=== PATIENT | male | born 1955 | race Caucasian/White ===

== ENCOUNTER 2017-11-19 08:56 | Inpatient (IN) | payer BC ==
[2017-11-19] MEDS: SOD CHLORIDE 0.9% 1,000 ML IV (10:50)
[2017-11-19 10:54] LABS: ADD MAN DIFF? NO
[2017-11-19 10:56] LABS: BASOPHILS % 0.4 % (0.0-2.0); EOSINOPHILS # 0.1 10^3/ul (0.0-0.5); EOSINOPHILS % 1.5 % (0.0-7.0); HEMATOCRIT 27.3 % (42.0-52.0); HEMOGLOBIN 9.9 g/dl (14.0-18.0); LYMPHOCYTES # 0.6 10^3/ul (0.8-2.9); LYMPHOCYTES % 13.5 % (15.0-51.0); MEAN CORPUSCULAR HEMOGLOBIN 33.7 pg (29.0-33.0); MEAN CORPUSCULAR HGB CONC 36.3 g/dl (32.0-37.0); MEAN CORPUSCULAR VOLUME 92.9 fl (82.0-101.0); MEAN PLATELET VOLUME 10.3 fl (7.4-10.4); MONOCYTE # 0.3 10^3/ul (0.3-0.9); NEUTROPHIL # 3.5 10^3/ul (1.6-7.5); NEUTROPHILS % 77.4 % (39.0-77.0); PLATELET COUNT 239 10^3/UL (140-415); RED BLOOD COUNT 2.94 10^6/ul (4.70-6.10); RED CELL DISTRIBUTION WIDTH 11.8 % (11.5-14.5)
[2017-11-19 10:56] LABS: WHITE BLOOD COUNT 4.6 10^3/ul (4.8-10.8)
[2017-11-19 11:48] LABS: ADD UMIC YES; UR ASCORBIC ACID NEGATIVE (NEGATIVE); UR BILIRUBIN (Dip) NEGATIVE (NEGATIVE); UR BLOOD (Dip) 1+ mg/dL (NEGATIVE); UR CLARITY CLEAR (CLEAR); UR COLOR COLORLESS (YELLOW); UR GLUCOSE (Dip) NEGATIVE (NEGATIVE); UR KETONES (Dip) NEGATIVE (NEGATIVE); UR LEUKOCYTE ESTERASE (Dip) 1+ Leu/ul (NEGATIVE); UR NITRITE (Dip) NEGATIVE (NEGATIVE); UR RBC 0 /HPF (0-5); UR SPECIFIC GRAVITY (Dip) 1.003 (1.003-1.030); UR TOTAL PROTEIN (Dip) NEGATIVE (NEGATIVE); UR UROBILINOGEN (Dip) NEGATIVE (NEGATIVE); UR WBC 2 /HPF (0-5)
[2017-11-19 12:00] LABS: ALANINE AMINOTRANSFERASE 19 IU/L (13-69); ALBUMIN 4.8 g/dl (3.3-4.9); ALBUMIN/GLOBULIN RATIO 1.41; ALKALINE PHOSPHATASE 76 IU/L (42-121); ANION GAP 20 (8-16); ASPARTATE AMINO TRANSFERASE 13 IU/L (15-46); BILIRUBIN,INDIRECT 0.1 mg/dl (0-1.1); BILIRUBIN,TOTAL 0.1 mg/dl (0.2-1.3); BLOOD UREA NITROGEN 53 mg/dl (7-20); CALCIUM 9.6 mg/dl (8.4-10.2); CARBON DIOXIDE 20 mmol/L (21-31); CHLORIDE 98 mmol/L (97-110); GLUCOSE 98 mg/dl (70-220); LIPASE 81 U/L (23-300); POTASSIUM 4.8 mmol/L (3.5-5.1); SODIUM 133 mmol/L (135-144); TOTAL PROTEIN 8.2 g/dl (6.1-8.1)
[2017-11-19 12:12] LABS: TROPONIN-I < 0.012 ng/ml (0.00-0.12)
[2017-11-19] MEDS ORDERED: ACETAMINOPHEN 325 MG TAB PO (13:00)
[2017-11-19] MEDS ORDERED: ONDANSETRON 4 MG INJ IV (13:00)
[2017-11-19 16:43] LABS: ADD UMIC YES; UR ASCORBIC ACID NEGATIVE (NEGATIVE); UR BACTERIA FEW /HPF (NONE SEEN); UR BILIRUBIN (Dip) NEGATIVE (NEGATIVE); UR BLOOD (Dip) 1+ mg/dL (NEGATIVE); UR CLARITY CLEAR (CLEAR); UR COLOR COLORLESS (YELLOW); UR GLUCOSE (Dip) NEGATIVE (NEGATIVE); UR KETONES (Dip) NEGATIVE (NEGATIVE); UR LEUKOCYTE ESTERASE (Dip) TRACE Leu/ul (NEGATIVE); UR NITRITE (Dip) NEGATIVE (NEGATIVE); UR RBC 0 /HPF (0-5); UR SPECIFIC GRAVITY (Dip) 1.002 (1.003-1.030); UR TOTAL PROTEIN (Dip) NEGATIVE (NEGATIVE); UR UROBILINOGEN (Dip) NEGATIVE (NEGATIVE); UR WBC 2 /HPF (0-5)
[2017-11-19 18:23] LABS: ANION GAP 17 (8-16); BLOOD UREA NITROGEN 51 mg/dl (7-20); CALCIUM 9.8 mg/dl (8.4-10.2); CARBON DIOXIDE 24 mmol/L (21-31); CHLORIDE 100 mmol/L (97-110); CREATININE 4.26 mg/dl (0.61-1.24); GLUCOSE 98 mg/dl (70-220); POTASSIUM 4.5 mmol/L (3.5-5.1); SODIUM 136 mmol/L (135-144)
[2017-11-19] MEDS ORDERED: NACL 0.9% 3 ML SYG IV (18:30)
[2017-11-19] MEDS: TAMSULOSIN (SR) 0.4 MG CAP PO (21:28)
[2017-11-19] MEDS: HEPARIN 5,000 UNIT/0.5 ML VIAL SC (21:30)
[2017-11-19] MEDS: ZOLPIDEM 5 MG TAB PO (22:57)
[2017-11-19 23:07] LABS: PROSTATE SPECIFIC ANTIGEN 2.7 ng/ml (0.0-4.0)
[2017-11-20] MEDS: HEPARIN 5,000 UNIT/0.5 ML VIAL SC (05:59)
[2017-11-20 06:38] LABS: ADD MAN DIFF? NO
[2017-11-20 06:47] LABS: BASOPHILS % 0.4 % (0.0-2.0); EOSINOPHILS # 0.1 10^3/ul (0.0-0.5); HEMATOCRIT 31.5 % (42.0-52.0); HEMOGLOBIN 11.1 g/dl (14.0-18.0); LYMPHOCYTES # 0.6 10^3/ul (0.8-2.9); LYMPHOCYTES % 11.9 % (15.0-51.0); MEAN CORPUSCULAR HEMOGLOBIN 33.1 pg (29.0-33.0); MEAN CORPUSCULAR HGB CONC 35.2 g/dl (32.0-37.0); MEAN PLATELET VOLUME 11.1 fl (7.4-10.4); MONOCYTE # 0.4 10^3/ul (0.3-0.9); MONOCYTES % 6.9 % (0.0-11.0); NEUTROPHIL # 4.1 10^3/ul (1.6-7.5); NEUTROPHILS % 79.4 % (39.0-77.0); PLATELET COUNT 274 10^3/UL (140-415); RED BLOOD COUNT 3.35 10^6/ul (4.70-6.10)
[2017-11-20 06:47] LABS: WHITE BLOOD COUNT 5.2 10^3/ul (4.8-10.8)
[2017-11-20 07:07] LABS: IRON 53 ug/dl (35-150)
[2017-11-20 07:12] LABS: ANION GAP 18 (8-16); BLOOD UREA NITROGEN 49 mg/dl (7-20); CALCIUM 9.6 mg/dl (8.4-10.2); CARBON DIOXIDE 22 mmol/L (21-31); CHLORIDE 103 mmol/L (97-110); CREATININE 3.94 mg/dl (0.61-1.24); GLUCOSE 114 mg/dl (70-220); SODIUM 138 mmol/L (135-144)
[2017-11-20 07:16] LABS: % IRON SATURATION 22 % SAT (22-52); TOTAL IRON BINDING CAPACITY 239 ug/dl (241-421)
[2017-11-20 07:21] LABS: POTASSIUM 5.2 mmol/L (3.5-5.1)
[2017-11-20 07:37] LABS: ALANINE AMINOTRANSFERASE 21 IU/L (13-69); ALBUMIN 4.4 g/dl (3.3-4.9); ALBUMIN/GLOBULIN RATIO 1.46; ALKALINE PHOSPHATASE 64 IU/L (42-121); ANION GAP 18 (8-16); ASPARTATE AMINO TRANSFERASE 11 IU/L (15-46); BILIRUBIN,INDIRECT 0.1 mg/dl (0-1.1); BILIRUBIN,TOTAL 0.1 mg/dl (0.2-1.3); BLOOD UREA NITROGEN 49 mg/dl (7-20); CALCIUM 9.6 mg/dl (8.4-10.2); CARBON DIOXIDE 21 mmol/L (21-31); CHLORIDE 103 mmol/L (97-110); CREATININE 4.04 mg/dl (0.61-1.24); GLUCOSE 119 mg/dl (70-220); POTASSIUM 4.8 mmol/L (3.5-5.1); SODIUM 137 mmol/L (135-144); TOTAL PROTEIN 7.4 g/dl (6.1-8.1)
[2017-11-20 07:56] LABS: HIV 1&2 ANTIBODY NEGATIVE (NEGATIVE)
[2017-11-20] MEDS: TAMSULOSIN (SR) 0.4 MG CAP PO (20:52)
[2017-11-20] MEDS: ZOLPIDEM 5 MG TAB PO (20:56)
[2017-11-21 06:17] LABS: ADD MAN DIFF? NO
[2017-11-21 06:23] LABS: BASOPHILS % 0.5 % (0.0-2.0); EOSINOPHILS # 0.4 10^3/ul (0.0-0.5); EOSINOPHILS % 6.3 % (0.0-7.0); HEMATOCRIT 29.8 % (42.0-52.0); HEMOGLOBIN 10.6 g/dl (14.0-18.0); LYMPHOCYTES % 17.5 % (15.0-51.0); MEAN CORPUSCULAR HEMOGLOBIN 33.2 pg (29.0-33.0); MEAN CORPUSCULAR HGB CONC 35.6 g/dl (32.0-37.0); MEAN CORPUSCULAR VOLUME 93.4 fl (82.0-101.0); MEAN PLATELET VOLUME 10.9 fl (7.4-10.4); MONOCYTE # 0.5 10^3/ul (0.3-0.9); MONOCYTES % 8.5 % (0.0-11.0); NEUTROPHIL # 3.9 10^3/ul (1.6-7.5); NEUTROPHILS % 66.7 % (39.0-77.0); PLATELET COUNT 262 10^3/UL (140-415); RED BLOOD COUNT 3.19 10^6/ul (4.70-6.10); RED CELL DISTRIBUTION WIDTH 11.9 % (11.5-14.5)
[2017-11-21 06:23] LABS: WHITE BLOOD COUNT 5.9 10^3/ul (4.8-10.8)
[2017-11-21 06:53] LABS: ANION GAP 18 (8-16); BLOOD UREA NITROGEN 49 mg/dl (7-20); CALCIUM 9.5 mg/dl (8.4-10.2); CARBON DIOXIDE 22 mmol/L (21-31); CHLORIDE 101 mmol/L (97-110); CREATININE 4.04 mg/dl (0.61-1.24); GLUCOSE 109 mg/dl (70-220); POTASSIUM 4.9 mmol/L (3.5-5.1); SODIUM 136 mmol/L (135-144)
[2017-11-21] MEDS: HYDROCODONE/APAP (5/325) TAB PO (12:51)
[2017-11-21] MEDS ORDERED: DOCUSATE SODIUM 100 MG CAP PO (15:00)
[2017-11-21] MEDS: TAMSULOSIN (SR) 0.4 MG CAP PO (21:01)
[2017-11-21] MEDS: ZOLPIDEM 5 MG TAB PO (22:14)
[2017-11-22 05:40] LABS: ANION GAP 16 (8-16); BLOOD UREA NITROGEN 41 mg/dl (7-20); CALCIUM 9.9 mg/dl (8.4-10.2); CARBON DIOXIDE 24 mmol/L (21-31); CHLORIDE 99 mmol/L (97-110); CREATININE 3.76 mg/dl (0.61-1.24); GLUCOSE 118 mg/dl (70-220); POTASSIUM 4.7 mmol/L (3.5-5.1); SODIUM 134 mmol/L (135-144)
[2017-11-22] MEDS: LORAZEPAM 0.5 MG TAB PO ×2 (06:58→20:28)
[2017-11-22] MEDS: HYDROCODONE/APAP (5/325) TAB PO ×2 (09:13→17:40)
[2017-11-22] MEDS: TAMSULOSIN (SR) 0.4 MG CAP PO (20:24)
[2017-11-22] MEDS: ZOLPIDEM 5 MG TAB PO (21:50)
[2017-11-23] MEDS: LORAZEPAM 0.5 MG TAB PO ×2 (05:48→10:07)
== END 2017-11-23 19:05 | disposition home health service (06) | DRG 699 ==
LOC: E/R 08:56 → PP2 12:51
DX: N31.2 Flaccid neuropathic bladder, not elsewhere classified (principal); R33.0 Drug induced retention of urine; N17.9 Acute kidney failure, unspecified; E87.1 Hypo-osmolality and hyponatremia; N13.30 Unspecified hydronephrosis; N13.9 Obstructive and reflux uropathy, unspecified; N40.1 Benign prostatic hyperplasia with lower urinary tract symptoms; E86.1 Hypovolemia; F32.9 Major depressive disorder, single episode, unspecified; R35.1 Nocturia; T50.995A Adverse effect of other drugs, medicaments and biological substances, initial encounter
CPT/HCPCS: 36415; 76775; 80048; 80053; 81001; 82728; 83540; 83690; 84153; 84154; 84484; 85025; 86703; 93005; 99285-25

== ENCOUNTER 2019-02-10 08:06 | Inpatient (IN) | payer BC ==
[2019-02-10 09:11] LABS: ADD MAN DIFF? NO
[2019-02-10 09:12] LABS: BASOPHILS % 0.4 % (0.0-2.0); EOSINOPHILS # 0.1 10^3/ul (0.0-0.5); EOSINOPHILS % 0.7 % (0.0-7.0); HEMATOCRIT 27.5 % (42.0-52.0); HEMOGLOBIN 9.8 g/dl (14.0-18.0); LYMPHOCYTES # 0.8 10^3/ul (0.8-2.9); LYMPHOCYTES % 12.1 % (15.0-51.0); MEAN CORPUSCULAR HEMOGLOBIN 31.5 pg (29.0-33.0); MEAN CORPUSCULAR HGB CONC 35.6 g/dl (32.0-37.0); MEAN CORPUSCULAR VOLUME 88.4 fl (82.0-101.0); MEAN PLATELET VOLUME 8.9 fl (7.4-10.4); MONOCYTE # 0.5 10^3/ul (0.3-0.9); MONOCYTES % 7.1 % (0.0-11.0); NEUTROPHIL # 5.3 10^3/ul (1.6-7.5); NEUTROPHILS % 76.8 % (39.0-77.0); PLATELET COUNT 436 10^3/UL (140-415); RED BLOOD COUNT 3.11 10^6/ul (4.70-6.10); RED CELL DISTRIBUTION WIDTH 13.3 % (11.5-14.5)
[2019-02-10 09:30] LABS: ANION GAP 15 (5-13); BLOOD UREA NITROGEN 39 mg/dl (7-20); CALCIUM 9.5 mg/dl (8.4-10.2); CARBON DIOXIDE 20 mmol/L (21-31); CHLORIDE 86 mmol/L (97-110); CREATININE 4.38 mg/dl (0.61-1.24); Estimated GFR 14 mL/min (>60); GLUCOSE 117 mg/dl (70-220); POTASSIUM 4.5 mmol/L (3.5-5.1); SODIUM 121 mmol/L (135-144)
[2019-02-10 09:31] LABS: INR 1.08; PROTIME 14.1 Sec (11.9-14.9); PT RATIO 1.1
[2019-02-10 09:32] LABS: PARTIAL THROMBOPLASTIN TIME 45.8 Sec (23.0-35.0)
[2019-02-10 10:22] LABS: ADD UMIC YES; UR ASCORBIC ACID NEGATIVE (NEGATIVE); UR BACTERIA FEW /HPF (NONE SEEN); UR BILIRUBIN (Dip) NEGATIVE (NEGATIVE); UR BLOOD (Dip) 2+ mg/dL (NEGATIVE); UR CLARITY SLIGHTLY CLOUDY (CLEAR); UR COLOR STRAW (YELLOW); UR GLUCOSE (Dip) NEGATIVE (NEGATIVE); UR KETONES (Dip) NEGATIVE (NEGATIVE); UR LEUKOCYTE ESTERASE (Dip) 3+ Leu/ul (NEGATIVE); UR NITRITE (Dip) NEGATIVE (NEGATIVE); UR RBC 7 /HPF (0-5); UR SPECIFIC GRAVITY (Dip) 1.002 (1.003-1.030); UR TOTAL PROTEIN (Dip) NEGATIVE (NEGATIVE); UR UROBILINOGEN (Dip) NEGATIVE (NEGATIVE); UR WBC 11 /HPF (0-5)
[2019-02-10] MEDS ORDERED: ONDANSETRON 4 MG INJ IV (10:30)
[2019-02-10] MEDS ORDERED: ACETAMINOPHEN 325 MG TAB PO (10:30)
[2019-02-10 10:34] LABS: SODIUM,URINE RANDOM 14 mmol/L (30-90)
[2019-02-10] MEDS ORDERED: CEFTRIAXONE 1 GM/50 ML (PMX) 50 ML IVPB (11:30)
[2019-02-10] MEDS: SOD CHLORIDE 0.9% 1,000 ML IV ×2 (11:32→15:45)
[2019-02-10 11:36] LABS: OSMOLALITY,URINE 90 mOsm/kg (250-1200)
[2019-02-10] MEDS ORDERED: LORAZEPAM 1 MG TAB PO (12:00)
[2019-02-10] MEDS ORDERED: NACL 0.9% 3 ML SYG IV (12:00)
[2019-02-10 12:31] LABS: OSMOLALITY 251 mOsm/kg (280-295)
[2019-02-10 13:01] LABS: SODIUM,URINE RANDOM 14 mmol/L (30-90)
[2019-02-10 13:05] LABS: CREATININE,URINE RANDOM 14.65 mg/dl (20-370); PROTEIN/CREAT RATIO 2.11 RATIO
[2019-02-10 14:24] LABS: OSMOLALITY,URINE 89 mOsm/kg (250-1200)
[2019-02-10 15:08] LABS: ANION GAP 12 (5-13); BLOOD UREA NITROGEN 42 mg/dl (7-20); CALCIUM 9.3 mg/dl (8.4-10.2); CARBON DIOXIDE 22 mmol/L (21-31); CHLORIDE 92 mmol/L (97-110); CREATININE 4.58 mg/dl (0.61-1.24); Estimated GFR 13 mL/min (>60); GLUCOSE 108 mg/dl (70-220); POTASSIUM 4.7 mmol/L (3.5-5.1); SODIUM 126 mmol/L (135-144)
[2019-02-10] MEDS: CITRIC ACID/NA CITRATE 30 ML CUP PO ×2 (15:45→21:01)
[2019-02-10] MEDS: CEPHALEXIN 500 MG CAP PO ×2 (15:45→21:01)
[2019-02-10] MEDS: AMLODIPINE 5 MG TAB PO (21:01)
[2019-02-11] MEDS: CEPHALEXIN 500 MG CAP PO ×2 (05:56→16:34)
[2019-02-11] MEDS: SOD CHLORIDE 0.9% 1,000 ML IV (05:57)
[2019-02-11] MEDS: CITRIC ACID/NA CITRATE 30 ML CUP PO ×2 (08:06→16:34)
[2019-02-11] MEDS: AMLODIPINE 5 MG TAB PO (08:06)
[2019-02-11 08:50] LABS: ANION GAP 11 (5-13); BLOOD UREA NITROGEN 38 mg/dl (7-20); CALCIUM 9.1 mg/dl (8.4-10.2); CARBON DIOXIDE 21 mmol/L (21-31); CHLORIDE 98 mmol/L (97-110); CREATININE 4.42 mg/dl (0.61-1.24); Estimated GFR 14 mL/min (>60); GLUCOSE 102 mg/dl (70-220); POTASSIUM 4.6 mmol/L (3.5-5.1); SODIUM 130 mmol/L (135-144)
[2019-02-11 09:07] LABS: HEMOGLOBIN A1C 5.4 % (0-5.9)
[2019-02-11 10:43] LABS: OSMOLALITY 272 mOsm/kg (280-295)
== END 2019-02-11 17:10 | disposition home or self-care (01) | DRG 641 ==
LOC: TEL 02-11 11:07 → E/R 08:06 → TEL 10:03
DX: E87.1 Hypo-osmolality and hyponatremia (principal); I12.0 Hypertensive chronic kidney disease with stage 5 chronic kidney disease or end stage renal disease; N18.5 Chronic kidney disease, stage 5; N17.9 Acute kidney failure, unspecified; E87.2 Acidosis; D63.1 Anemia in chronic kidney disease; F32.9 Major depressive disorder, single episode, unspecified; N40.1 Benign prostatic hyperplasia with lower urinary tract symptoms; R33.8 Other retention of urine; L80 Vitiligo
CPT/HCPCS: 36415; 71046; 80048; 81001; 81003; 82570; 83036; 83930; 83935; 84300; 84443; 85025; 85610; 85730; 93005; 99285-25